=== PATIENT | female | born 1960 | race Hispanic/Latino ===

== ENCOUNTER 2017-10-18 11:46 | Emergency (ER) | payer MEDICAID ==
[2017-10-18 11:47] VITALS: BMI 25.5
[2017-10-18 12:34] VITALS: BP 161/84; PULSE 86; RESP 18; TEMP 98; O2SAT 97
--- NOTE | 2017-10-18 14:10 | ED PDOC ---
Upper Extremity Pain/Injury Time Seen by Provider: 10/18/17 13:00 Chief Complaint (Nursing): Upper Extremity Problem/Injury Chief Complaint (Provider): Upper Extremity Problem/Injury History Per: Patient History/Exam Limitations: no limitations Onset/Duration Of Symptoms: Days (x 1) Additional Complaint(s): Chacorta is a 57 year old female who presents to the Emergency Department complaining of left shoulder blade pain since yesterday. Patient states for the past week she was coughing. Reports yesterday when resting at home, patient developed pain to left upper back around her shoulder blade that was worsening with movement of the left shoulder and when she coughs, but no radiation of pain. Denies chest pain, shortness of breath, hemoptysis, palpitations, trauma, numbness and tingling. PMD: Jose A Cardoso Past Medical History Reviewed: Historical Data, Nursing Documentation, Vital Signs Vital Signs: Last Vital Signs Temp 98 F 10/18/17 12:31 Pulse 86 10/18/17 12:31 Resp 18 10/18/17 12:31 BP 161/84 H 10/18/17 12:31 Pulse Ox 97 10/18/17 12:31 - Medical History PMH: Anxiety, Back Problems, Depression, HTN, Hypercholesterolemia, Hypothyroidism, Kidney Stones, TIA (per old chart but pt denies), Chronic Pain ( chronic leg pain, low back pain) Denies: Anemia, Arthritis, CHF, COPD, HIV, Chronic Kidney Disease, Rheumatoid Arthritis - Surgical History Surgical History: (x 4) - Family History Family History: States: Unknown Family Hx - Immunization History Hx Tetanus Toxoid Vaccination: Yes Hx Influenza Vaccination: Yes Hx Pneumococcal Vaccination: Yes - Home Medications Home Medications: Ambulatory Orders Medication Instructions Recorded Halobetasol Propionate [Ultravate] 1 appl TOP BID PRN 04/06/16 Levothyroxine [Synthroid] 50 mcg PO DAILY 04/06/16 Polyethylene Glycol 3350 [Miralax] 17 gm PO DAILY PRN 04/06/16 Pravastatin Sodium [Pravachol] 20 mg PO DAILY 04/06/16 Aspirin [Aspirin Chewable] 81 mg PO DAILY #0 chew 04/07/16 Losartan [Cozaar] 25 mg PO DAILY #30 tab 04/07/16 Metoprolol Succinate [Toprol XL] 25 mg PO DAILY #30 tab 04/07/16 Pravastatin Sodium [Pravachol] 20 mg PO DAILY #0 tab 04/07/16 Cyclobenzaprine [Flexeril] 5 mg PO Q8 PRN #9 tab 12/05/16 Methylprednisolone [Medrol Dose 4 mg PO ASDIR #21 mg 12/05/16 Pack (21 tabs)] traMADol [Ultram] 50 mg PO TID PRN #15 tab 12/05/16 Methocarbamol [Robaxin] 500 mg PO Q8 PRN #15 tab 10/18/17 Naproxen [Naprosyn] 500 mg PO BID PRN #30 tab 10/18/17 Promethazine DM [Phenergan DM 5 - 10 ml PO Q8 PRN #120 ml 10/18/17 Syrup] - Allergies Allergies/Adverse Reactions: Allergies Allergy/AdvReac Type Severity Reaction Status Date / Time Penicillins Allergy URTICARIA Verified 12/04/16 19:43 Review of Systems ROS Statement: Except As Marked, All Systems Reviewed And Found Negative Cardiovascular: Negative for: Chest Pain, Palpitations Respiratory: Negative for: Shortness of Breath, Hemoptysis Musculoskeletal: Positive for: Shoulder Pain (Left), Back Pain (Left Upper). Negative for: Other (Trauma) Neurological: Negative for: Numbness, Other (Tingling) Physical Exam - Reviewed Nursing Documentation Reviewed: Yes Vital Signs Reviewed: Yes - Physical Exam Appears: Positive for: Non-toxic Skin: Positive for: Normal Color Cardiovascular/Chest: Positive for: Regular Rate, Rhythm Respiratory: Positive for: Normal Breath Sounds. Negative for: Respiratory Distress Back: Positive for: Muscle Spasm (Moderate on left scapular area). Negative for : L CVA Tenderness, R CVA Tenderness, Vertebral Tenderness - ECG ECG: Positive for: Interpreted By Me ECG Rhythm: Negative for: ST/T Changes Interpretation Of ECG: Sinus rhythm: 75 beats per minute O2 Sat by Pulse Oximetry: 97 (ra) Pulse Ox Interpretation: Normal - Radiology X-Ray: Interpreted by Me (CXR) X-Ray Interpretation: No Acute Disease Medical Decision Making Medical Decision Making: Time: 13:11 Plan: - Chest X-Ray Time: 14:14 Upon provider evaluation patient is medically stable, and requires no further treatment in the ED at this time. Patient will be discharged with Rx for Robaxin , Naprosyn and Phenergan DM Syrup. Counseling was provided and all questions were answered regarding diagnosis and need for follow up with PCP. There is agreement to discharge plan. Return if symptoms persist or worsen. Scribe Attestation: Documented by Seferino Romo, acting as a scribe for Jerrell Simons PA-C Provider Scribe Attestation: All medical record entries made by the Scribe were at my direction and personally dictated by me. I have reviewed the chart and agree that the record accurately reflects my personal performance of the history, physical exam, medical decision making, and the department course for this patient. I have also personally directed, reviewed, and agree with the discharge instructions and disposition. Disposition - Clinical Impression Clinical Impression: Muscle spasm, Upper respiratory infection - Patient ED Disposition Is Patient to be Admitted: No - Disposition Referrals: Sandie Roca [Outside] Disposition: Routine/Home Disposition Time: 14:30 Condition: STABLE Prescriptions: Methocarbamol [Robaxin] 500 mg PO Q8 PRN #15 tab PRN Reason: Muscle Spasm Naproxen [Naprosyn] 500 mg PO BID PRN #30 tab PRN Reason: Pain Promethazine DM [Phenergan DM Syrup] 5 - 10 ml PO Q8 PRN #120 ml PRN Reason: Cough Instructions: Upper Respiratory Infection (ED), Muscle Spasm (ED) Forms: [employer] (Indonesian) Print Language: ROMANSH
--- NOTE | 2017-10-18 16:43 | RAD ---
HISTORY: cough COMPARISON: Chest xray performed 04/06/16 TECHNIQUE: Chest PA and lateral FINDINGS: LUNGS: No focal consolidation. Please note that chest x-ray has limited sensitivity for the detection of pulmonary masses. PLEURA: No significant pleural effusion identified. No definite pneumothorax . CARDIOVASCULAR: The cardiomediastinal silhouette appears within normal limits of size. OSSEOUS STRUCTURES: Osseous demineralization. Degenerative changes. VISUALIZED UPPER ABDOMEN: Unremarkable. OTHER FINDINGS: None. IMPRESSION: No focal consolidation, significant pleural effusion, or definite pneumothorax identified.
== END 2017-10-18 15:11 | disposition home or self-care (01) ==
LOC: H.ER 11:46
DX: J06.9 Acute upper respiratory infection, unspecified (principal); M62.838 Other muscle spasm; E03.9 Hypothyroidism, unspecified; E78.00 Pure hypercholesterolemia, unspecified; F32.9 Major depressive disorder, single episode, unspecified; F41.9 Anxiety disorder, unspecified; G89.29 Other chronic pain; I10 Essential (primary) hypertension; Z79.82 Long term (current) use of aspirin; Z86.73 Personal history of transient ischemic attack (TIA), and cerebral infarction without residual deficits; Z87.442 Personal history of urinary calculi; Z88.0 Allergy status to penicillin

== ENCOUNTER 2018-07-30 13:00 | Emergency (ER) | payer MEDICAID ==
[2018-07-30 13:00] VITALS: BMI 25.5
[2018-07-30 13:13] VITALS: BP 165/80; PULSE 71; RESP 16; TEMP 98.3; O2SAT 98
--- NOTE | 2018-07-30 13:23 | ED PDOC ---
Lower Extremity Pain/Injury Time Seen by Provider: 07/30/18 13:18 Chief Complaint (Nursing): Lower Extremity Problem/Injury Chief Complaint (Provider): toe injury History Per: Patient Additional Complaint(s): 58 year old female presents with pain and swelling to right 3rd toe s/p stubbing toe 2 days ago. Patient complains of throbbing pain. She has not taken anything for pain relief. PMD: Dr. Davenport Past Medical History Reviewed: Historical Data, Nursing Documentation, Vital Signs Vital Signs: Last Vital Signs Temp 98.3 F 07/30/18 13:11 Pulse 71 07/30/18 13:11 Resp 16 07/30/18 13:11 BP 165/80 H 07/30/18 13:11 Pulse Ox 98 07/30/18 13:11 - Medical History PMH: Anxiety, Back Problems, Depression, HTN, Hypercholesterolemia, Hypothyroidism, Kidney Stones - Surgical History Surgical History: (x 4) - Family History Family History: States: No Known Family Hx - Living Arrangements Living Arrangements: With Family - Social History Current smoker - smoking cessation education provided: No Alcohol: Social Drugs: Denies - Home Medications Home Medications: Ambulatory Orders Medication Instructions Recorded Halobetasol Propionate [Ultravate] 1 appl TOP BID PRN 04/06/16 Levothyroxine [Synthroid] 50 mcg PO DAILY 04/06/16 Polyethylene Glycol 3350 [Miralax] 17 gm PO DAILY PRN 04/06/16 Pravastatin Sodium [Pravachol] 20 mg PO DAILY 04/06/16 Aspirin [Aspirin Chewable] 81 mg PO DAILY #0 chew 04/07/16 Losartan [Cozaar] 25 mg PO DAILY #30 tab 04/07/16 Metoprolol Succinate XL [Toprol XL] 25 mg PO DAILY #30 tab 04/07/16 Pravastatin Sodium [Pravachol] 20 mg PO DAILY #0 tab 04/07/16 Cyclobenzaprine [Flexeril] 5 mg PO Q8 PRN #9 tab 12/05/16 Methylprednisolone [Medrol Dose 4 mg PO ASDIR #21 mg 12/05/16 Pack (21 tabs)] traMADol [Ultram] 50 mg PO TID PRN #15 tab 12/05/16 Methocarbamol [Robaxin] 500 mg PO Q8 PRN #15 tab 12/04/17 Naproxen [Naprosyn] 500 mg PO BID PRN #30 tab 10/18/17 Promethazine DM [Phenergan DM 5 - 10 ml PO Q8 PRN #120 ml 10/18/17 Syrup] Ibuprofen [Motrin] 600 mg PO Q6 PRN #24 tab 07/30/18 - Allergies Allergies/Adverse Reactions: Allergies Allergy/AdvReac Type Severity Reaction Status Date / Time Penicillins Allergy URTICARIA Verified 07/30/18 13:11 Review of Systems ROS Statement: Except As Marked, All Systems Reviewed And Found Negative Musculoskeletal: Positive for: Other (right 3rd toe injury) Physical Exam - Reviewed Nursing Documentation Reviewed: Yes Vital Signs Reviewed: Yes - Physical Exam Appears: Positive for: Well, Non-toxic, No Acute Distress Skin: Positive for: Normal Color. Negative for: Rash Eye Exam: Positive for: Normal appearance Extremity: Positive for: Other (tenderness and swelling to right 3rd toe with decreased ROM, remaining toes wnl) Neurologic/Psych: Positive for: Alert, Oriented - ECG O2 Sat by Pulse Oximetry: 98 Pulse Ox Interpretation: Normal - Other Rad Right foot x-ray X-Ray: Interpreted by Me, Viewed By Me X-Ray Interpretation: no fx, no dis Medical Decision Making Medical Decision Makin58 y/o with right 3rd toe injury Plan: PO motrin X-ray right foot Patient is aware of x-ray results. All questions answered. Procedure note: right 2nd and 3rd toes were joyce tapes, ortho shoe applied to right foot, N/V intact s/p placement. Patient was given prescription for Motrin and referred to podiatry clinic for follow-up. Disposition - Clinical Impression Clinical Impression: Toe contusion - Patient ED Disposition Is Patient to be Admitted: No Counseled Patient/Family Regarding: Studies Performed, Diagnosis, Need For Followup, Rx Given - Disposition Referrals: Podiatry Clinic [Outside] Disposition: Routine/Home Disposition Time: 14:33 Condition: STABLE Additional Instructions: Ice, rest and elevate affected area. Take prescription meds as directed as needed for pain. Follow-up with podiatry clinic for any persistent symptoms. Prescriptions: Ibuprofen [Motrin] 600 mg PO Q6 PRN #24 tab PRN Reason: Pain, Moderate (4-7) Instructions: Contusion (DC), Toe Injury Forms: [employer] (Malian)
--- NOTE | 2018-07-30 14:39 | RAD ---
Date of service: 07/30/2018 PROCEDURE: Right Foot Radiographs. HISTORY: trauma COMPARISON: None. FINDINGS: BONES: Three views of the right foot with special attention to the right 3rd toe were performed. No fracture is seen. No lytic process is noted. No dislocation of the phalanges is seen. No erosions or periosteal reaction is noted. Subtalar joint is unremarkable. Talar dome is normal in outline. JOINTS: See above. SOFT TISSUES: Normal. OTHER FINDINGS: None. IMPRESSION: No fracture.
== END 2018-07-30 14:56 | disposition home or self-care (01) ==
LOC: H.ER 13:00
DX: S90.121A Contusion of right lesser toe(s) without damage to nail, initial encounter (principal); W22.8XXA Striking against or struck by other objects, initial encounter; Z86.59 Personal history of other mental and behavioral disorders; I10 Essential (primary) hypertension; Z87.442 Personal history of urinary calculi; Z79.82 Long term (current) use of aspirin; E03.9 Hypothyroidism, unspecified; E78.00 Pure hypercholesterolemia, unspecified; Z88.0 Allergy status to penicillin

== ENCOUNTER 2019-03-01 13:29 | Emergency (ER) | payer MEDICAID ==
[2019-03-01 13:29] VITALS: BMI 25.5
[2019-03-01 13:40] VITALS: RESP 16; TEMP 98.9
[2019-03-01] MEDS: Sodium Chloride 0.9% 1,000 ML IV SCH ×3 (14:33→16:44)
[2019-03-01 14:38] LABS: BASO % 0.2 % (0.0-2.0); EOS % 0.2 % (0.0-4.0); HEMOGLOBIN 13.8 g/dL (12.0-16.0); LYMPH # 0.3 K/uL (1.0-4.3); LYMPH % 2.7 % (20.0-40.0); MEAN CELL VOLUME 94.2 fl (81.0-99.0); MEAN CORPUSCULAR HEMOGLOBIN 31.1 pg (27.0-31.0); MEAN CORPUSCULAR HGB CONC 33.1 g/dL (33.0-37.0); MEAN PLATELET VOLUME 8.8 fl (7.2-11.7); MONO # 0.5 K/uL (0.0-0.8); MONO % 4.8 % (0.0-10.0); NEUT # 9.6 K/uL (1.8-7.0); NEUT % 92.1 % (50.0-75.0); PLATELET COUNT 265 K/uL (130-400); RBC 4.44 Mil/uL (3.80-5.20); WHITE BLOOD COUNT 10.4 K/uL (4.8-10.8)
--- NOTE | 2019-03-01 14:56 | ED PDOC ---
HPI:Nausea, Vomiting, Diarrhea Time Seen by Provider: 03/01/19 13:46 Chief Complaint (Nursing): GI Problem Chief Complaint (Provider): Nausea, Vomiting, Diarrhea History Per: Patient History/Exam Limitations: no limitations Onset/Duration Of Symptoms: Days (x1) Current Symptoms Are (Timing): Still Present Additional Complaint(s): 58 year old female presents to the ED for evaluation of nausea, four episodes of vomiting, and constant diarrhea described as loose, mushy, and non-bloody for the past day. Patient states that her symptoms have caused her to feel weak and dehydrated, as she cannot keep any food/liquid or her medications down. Otherwise, denies antibiotic use, recent travel, sick contacts, new food exposures, and urinary symptoms. Patient's only history of abdominal surgery is four c-sections. PMD: Manjit Hill Past Medical History Reviewed: Historical Data, Nursing Documentation, Vital Signs Vital Signs: Last Vital Signs Temp 98.9 F 03/01/19 13:37 Pulse 106 H 03/01/19 13:37 Resp 16 03/01/19 13:37 BP 156/85 H 03/01/19 13:37 Pulse Ox 97 03/01/19 13:37 - Medical History PMH: Anxiety, Back Problems, Depression, HTN, Hypercholesterolemia, Hypothyroidism, Kidney Stones, TIA (per old chart but pt denies), Chronic Pain (chronic leg pain, low back pain) Denies: Anemia, Arthritis, CHF, COPD, HIV, Chronic Kidney Disease, Rheumatoid Arthritis - Surgical History Surgical History: (x 4) - Family History Family History: States: Unknown Family Hx - Social History Current smoker - smoking cessation education provided: No Ex-Smoker (has not smoked in the last 12 months): Yes Alcohol: Social Drugs: Denies - Immunization History Hx Tetanus Toxoid Vaccination: Yes Hx Influenza Vaccination: Yes Hx Pneumococcal Vaccination: Yes - Home Medications Home Medications: Ambulatory Orders Medication Instructions Recorded Halobetasol Propionate [Ultravate] 1 appl TOP BID PRN 04/06/16 Levothyroxine [Synthroid] 50 mcg PO DAILY 04/06/16 Polyethylene Glycol 3350 [Miralax] 17 gm PO DAILY PRN 04/06/16 Pravastatin Sodium [Pravachol] 20 mg PO DAILY 04/06/16 Aspirin [Aspirin Chewable] 81 mg PO DAILY #0 chew 04/07/16 Losartan [Cozaar] 25 mg PO DAILY #30 tab 04/07/16 Metoprolol Succinate XL [Toprol XL] 25 mg PO DAILY #30 tab 04/07/16 Pravastatin Sodium [Pravachol] 20 mg PO DAILY #0 tab 04/07/16 Cyclobenzaprine [Flexeril] 5 mg PO Q8 PRN #9 tab 12/05/16 Methylprednisolone [Medrol Dose 4 mg PO ASDIR #21 mg 12/05/16 Pack (21 tabs)] traMADol [Ultram] 50 mg PO TID PRN #15 tab 12/05/16 Methocarbamol [Robaxin] 500 mg PO Q8 PRN #15 tab 10/18/17 Naproxen [Naprosyn] 500 mg PO BID PRN #30 tab 10/18/17 Promethazine DM [Phenergan DM 5 - 10 ml PO Q8 PRN #120 ml 10/18/17 Syrup] Ibuprofen [Motrin] 600 mg PO Q6 PRN #24 tab 07/30/18 Ondansetron ODT [Zofran ODT] 4 mg PO TID PRN #12 odt 03/01/19 - Allergies Allergies/Adverse Reactions: Allergies Allergy/AdvReac Type Severity Reaction Status Date / Time Penicillins Allergy URTICARIA Verified 03/01/19 13:37 Review of Systems ROS Statement: Except As Marked, All Systems Reviewed And Found Negative Constitutional: Positive for: Weakness, Other (dehydrated) Gastrointestinal: Positive for: Nausea, Vomiting (x4 episodes), Diarrhea (co nstant, loose, mushy, non-bloody) Genitourinary Female: Negative for: Dysuria, Frequency, Incontinence, Hematuria Physical Exam - Reviewed Nursing Documentation Reviewed: Yes Vital Signs Reviewed: Yes - Physical Exam Comments: GENERAL APPEARANCE: Patient is awake, alert, oriented x 3, in no acute distress. SKIN: Warm, dry; (-) cyanosis. EYES: (-) conjunctival pallor, (-) scleral icterus. ENMT: Mouth is dry NECK: (-) tenderness, (-) stiffness, (-) lymphadenopathy. CHEST AND RESPIRATORY: (-) rales, (-) rhonchi, (-) wheezes; breath sounds equal bilaterally. HEART AND CARDIOVASCULAR: (-) irregularity; (-) murmur, (-) gallop. ABDOMEN AND GI: (-) distention. Bowel sounds normal; diffuse tenderness, (-) guarding, (-) rebound, (-) palpable masses, (-) organomegaly, (-) CVA tenderness. EXTREMITIES: (-) deformity, (-) edema, (+) distal pulses. NEURO AND PSYCH: Mental status as above; (-) focal findings. - Laboratory Results Result Diagrams: 03/01/19 14:21 03/01/19 15:01 - ECG O2 Sat by Pulse Oximetry: 97 (RA) Pulse Ox Interpretation: Normal Medical Decision Making Medical Decision Making: Time: 1351 Impression: nausea, vomiting, diarrhea, dehydration Plan: --CBC with differential --NS IV fluids --Pepcid 20mg IVP --Toradol 15mg IVP --Zofran 4mg IVP --Urinalysis --CMP --Reevaluation re eval pt is feeling much better, tolerating PO liquids with no nausea, vomiting or abdominal pain, abdomen is soft and non tender labs wnl, UA wnl, pt likely with viral gastroenteritis Discussed results, diagnosis, treatment, return precautions and f/u with pt who is understanding, in agreement and stable for dc VSS and improved Scribe Attestation: Documented by Renée Fields, acting as a scribe for Rodrigo Yeung PA-C. Provider Scribe Attestation: All medical record entries made by the Scribe were at my direction and personally dictated by me. I have reviewed the chart and agree that the record accurately reflects my personal performance of the history, physical exam, medical decision making, and the department course for this patient. I have also personally directed, reviewed, and agree with the discharge instructions and disposition. Disposition - Clinical Impression Clinical Impression: Gastroenteritis - Patient ED Disposition Is Patient to be Admitted: No Counseled Patient/Family Regarding: Studies Performed, Diagnosis, Need For F ollowup, Rx Given - Disposition Referrals: Manjit Hill MD [Family Provider] - Disposition: Routine/Home Disposition Time: 17:00 Condition: IMPROVED Additional Instructions: Take medication as prescribed. Rest, drink plenty of fluids to stay hydrated - water, gatorade. Eat a bland diet. FOllow up with your doctor. Thank you for letting us take care of you today. The emergency medical care you received today was directed at your acute symptoms. If you were prescribed any medication, please fill it and take as directed. It may take several days for your symptoms to resolve. Return to the Emergency Department if your symptoms worsen, do not improve, or if you have any other problems. Please contact your doctor in 2 days for re-evaluation and follow up / or call one of the physicians/clinics you have been referred to that are listed on the Patient Visit Information form that is included in your discharge packet. Bring any paperwork you were given at discharge with you along with any medications you are taking to your follow up visit. Our treatment cannot replace ongoing medical care by a primary care provider (PCP) outside of the emergency department. Prescriptions: Ondansetron ODT [Zofran ODT] 4 mg PO TID PRN #12 odt PRN Reason: Nausea/Vomiting Instructions: Viral Gastroenteritis, Adult (DC) Forms: [employer] (Surinamese) Print Language: DJIBOUTIAN - POA Present On Arrival: None
[2019-03-01 15:23] LABS: ALB/GLOB RATIO 1.3 (1.0-2.1); ALBUMIN 4.2 g/dL (3.5-5.0); ALT/SGPT 36 U/L (9-52); AST/SGOT 23 U/L (14-36); BLOOD UREA NITROGEN 17 mg/dl (7-17); CALCIUM 8.9 mg/dL (8.4-10.2); GFR NON-AFRICAN AMERICAN > 60
[2019-03-01 15:47] LABS: BANDS 2 % (0-2); LYMPHOCYTE 2 % (20-50); MONOCYTE 5 % (0-10); NEUTROPHIL 91 % (42-75); PLATELET ESTIMATE NORMAL (NORMAL); TOTAL CELLS COUNTED 100
[2019-03-01 16:48] LABS: SQUAMOUS EPITHIAL < 1 /hpf (0-5); URINE BACTERIA RARE (<OCC); URINE BILIRUBIN NEGATIVE (NEGATIVE); URINE BLOOD NEGATIVE (NEGATIVE); URINE CLARITY CLEAR (Clear); URINE COLOR YELLOW (YELLOW); URINE GLUCOSE (UA) NEG (NEGATIVE); URINE LEUKOCYTE ESTERASE NEG Leu/uL (Negative); URINE PROTEIN NEGATIVE (NEGATIVE); URINE UROBILINOGEN 0.2-1.0 mg/dL (0.2-1.0)
[2019-03-01 17:27] VITALS: BP 123/61; PULSE 83
[2019-03-01 17:28] VITALS: O2SAT 97
== END 2019-03-01 17:03 | disposition home or self-care (01) ==
LOC: H.ER 13:29
DX: K52.9 Noninfective gastroenteritis and colitis, unspecified (principal); E03.9 Hypothyroidism, unspecified; E78.00 Pure hypercholesterolemia, unspecified; E86.0 Dehydration; I10 Essential (primary) hypertension; Z86.73 Personal history of transient ischemic attack (TIA), and cerebral infarction without residual deficits; Z88.0 Allergy status to penicillin
CPT/HCPCS: 80053; 81003; 85025; 96361; 96374; 96375; 99283; J1885; J2405; J7030